=== PATIENT | male | born 1945 | race Caucasian/White ===

== ENCOUNTER 2021-01-17 05:45 | Outpatient (CLI) | payer MEDICARE, OTHER | END 2021-01-17 23:59 | disposition home or self-care (01) | LOC: LAB 05:45 | PROVIDERS: ATTEND Specialist | DX: Z01.812 Encounter for preprocedural laboratory examination (principal); Z20.822 Contact with and (suspected) exposure to COVID-19 | CPT/HCPCS: C9803; U0003 ==

== ENCOUNTER 2021-01-20 05:08 | Inpatient (IN) | payer MEDICARE, OTHER ==
[~2021-01-20] VITALS: Ht 172.7 cm; Wt 76.2 kg
[2021-01-20] VITALS (34 sets, daily range): BP systolic 60–132; BP diastolic 36–98
[~2021-01-20 05:08] MED LIST: ANESTHESIA TRAY IN PYXIS 1 EA TRAY MC ONE
[2021-01-20] MEDS ORDERED: POLYMYXIN B SULFATE 500,000 UNITS ONE (05:46)
[2021-01-20] MEDS ORDERED: BUPIVACAINE MPF W/EPI 0.25% 30 ML VIAL ONE (05:47)
[2021-01-20] MEDS ORDERED: BUPIVACAINE MPF 0.5% W/EPI INJ 30 ML VIAL ONE (05:47)
[2021-01-20] MEDS ORDERED: MIDAZOLAM HCL 2 MG/2ML VIAL ONE (06:01)
[2021-01-20] MEDS ORDERED: FENTANYL PF 250MCG/5ML AMPUL ONE (06:01)
[2021-01-20] MEDS ORDERED: SUCCINYLCHOLINE CHLORIDE 20 MG/ML VIAL ONE (06:02)
[2021-01-20] MEDS ORDERED: FAMOTIDINE/PF INJ 20 MG/2 ML VIAL IV ONE (06:02)
--- NOTE | 2021-01-20 06:48 | NUR ---
BROADCAST FIELD SUPERVISOR NOTES: PATIENT CAME IN FOR DAY SURGERY 0540, AMBULATORY, A/0X4 ABLE TO MAKE NEEDS KNOWN, PLACE IN BED COMFORTABLY AT ROOM 306-2, PREPARED FOR DAY SURGERY ASSESSMENT DONE, PATIENT SIGNED CONSENT FORM , DR CAME IN AND EXPLAIN PROCEDURE, INVENTORY DONE, MRSA DONE,V/S TAKEN AND RECORDED, PATIENT ON RA SATURATING AT 97% NO SOB OR ANY RESP DISTRESS OBSERVED, KEPT CLEAN AND DRY, COAT TAILOR AT 0620 TO SURGERY DEPARTMENT.
[2021-01-20] MEDS ORDERED: TRANEXAMIC ACID 3,000 MG in SODIUM CHLORIDE IRRIG SOLUTION 70 ML IR ONE (07:00)
[2021-01-20] MEDS ORDERED: BUPIVACAINE 0.25% 75 MG/30 ML VIAL ONE (07:04)
[2021-01-20] MEDS ORDERED: FENTANYL PF 100MCG/2ML AMPUL ONE (09:57)
[2021-01-20] MEDS ORDERED: ACETAMINOPHEN 325 MG TABLET PO PRN (10:00)
[2021-01-20] MEDS ORDERED: ZOLPIDEM TARTRATE 5 MG TABLET PO PRN (10:00)
[2021-01-20] MEDS ORDERED: IV D5/0.45 NACL 1,000 ML IV PRN (10:00)
[2021-01-20] MEDS ORDERED: HYDROCODONE/APAP 5/325MG TABLET PO PRN ×2 (10:00→12:00)
[2021-01-20] MEDS ORDERED: DOCUSATE SODIUM 250 MG CAPSULE PO PRN (10:00)
[2021-01-20] MEDS ORDERED: BISACODYL SUPP (10 MG) 10 MG/SUPP.RECT SUPP.RECT RC PRN (10:00)
[2021-01-20] MEDS ORDERED: ONDANSETRON HCL/PF 4 MG/2 ML VIAL IVP PRN (10:00)
[2021-01-20] MEDS ORDERED: SENNOSIDES 8.6 MG TABLET PO PRN (10:00)
[2021-01-20 10:51] LABS: ABG BASE EXCESS -2.4 mmol/L; ABG OXYGEN SATURATION 90.6 % (92.0-98.5); ABG PCO2 36.4 mmHg (35.0-45.0); ABG PH 7.396 (7.350-7.450); ABG PO2 60.4 mmHg (75.0-100.0); AaDO2 211.8 mmHg; COHb 0.3 % (0.5-1.5); MetHb 0.3 % (0.0-1.5); O2Hb 90.1 % (94.0-97.0); SITE, ABG Right Radial; VENT MODE, BG NASAL CANNULA
[2021-01-20] MEDS ORDERED: ACETAMINOPHEN 325 MG TABLET PO ONE (11:52)
[2021-01-20] MEDS ORDERED: MAG HYDROX/AL HYDROX/SIMETH 30 ML UDC PO PRN (12:00)
[2021-01-20] MEDS ORDERED: HYDROMORPHONE 1 MG/1 ML DISP.SYRIN IM/IV/SC PRN (12:00)
[2021-01-20] MEDS ORDERED: CLONIDINE HCL 0.1 MG TABLET PO PRN (12:00)
[2021-01-20] MEDS ORDERED: diphenhydrAMINE HCL 25 MG CAPSULE PO PRN (12:00)
--- NOTE | 2021-01-20 12:30 | NUR ---
rn notes PATIENT RECEIVED FROM RECOVERY ROOM AT THIS TIME RIGHT KNEE ORTHOPLASTY, RIGHT GROIN NERVE BLACK, SPINAL, AND GENERALIZED ANESTHESIA. PATIENT T-102.7 F RECTALLY, BP- 107/74, P-92, O2-91 NC -5L, R-12. PATIENT AWAKE A/O X3, WAS COMPLAINING OF PAIN 5/10 PER PAIN SCALE ON RIGHT KNEE. HAS ICE PACK ON. PATIENT HAS KNEE MOBILIZER, AND WARPED WITH ELASTIC WRAPPER. CAMPBELL DRAINING LIGHT YELLOW OUTPUT, AND HAD SMALL BLEEDING FROM INSERTION SITE. SEEN HOSPITALIST Dr ALEXANDRIA CAMPOS ORDER BLOOD CULTURE X2 SETS. ADMINISTER ANCEF X2 ORDERED , AND CALL MD FOR NEW NEEDS. ORDER TAKEN AND CARRIED OUT. CALL LIGHT WITHIN TO REACH. APPLIED COOLING MEASURE, AND ADMINISTERED TYLENOL 650 PO PRN. PATIENT REFUSED NAUSEA. CALL LIGHT WITHIN TO REACH. WILL FOLLOW UP. CALLED 3W FOR BELONGING BRING TO THE ICU.
[2021-01-20] MEDS ORDERED: ZOLP12.542 PO (13:35)
[2021-01-20] MEDS ORDERED: OXYC1TAB12 PO (13:35)
[2021-01-20] MEDS ORDERED: TAMS-12 PO (13:35)
[2021-01-20] MEDS ORDERED: HYDR25TA4 PO (13:35)
[2021-01-20] MEDS ORDERED: POTA8TAB3 PO (13:35)
[2021-01-20] MEDS: HYDROCODONE/APAP 10/325MG TABLET PO PRN (14:23)
--- NOTE | 2021-01-20 14:23 | NUR ---
rn notes administered narco10/325 mg po prn for right knee pain 09/09 per patient request . bp 108/74, p-88, r-24.
[2021-01-20] MEDS: ANCEF 1 GM/50 ML D5W IV SCH ×2 (15:39→22:29)
[2021-01-20] MEDS: DOCUSATE SODIUM 100 MG CAPSULE PO SCH (16:42)
--- NOTE | 2021-01-20 18:30 | NUR ---
RN NOTES T-99.9 RECTAL, TOLERATED DINNER 75 %, DUE MEDICATION ADMINISTERED, PATIENT STILL BLEEDING CAMPBELL INSERTION SIDE, CAMPBELL OUTPUT WAS 550ML, INFUSING D5W @125 ML/HR ON LEFT HAND INTACT. ASSIST TURN AND REPOSTION Q 2 HR. ELEVATED RIGHT LEG USING PILLOW, APPLIED ICE ON FLOR , PATIENT HAS RIGHT LEG BRACE IMMOBILIZER. PATIENT RESTING AT THIS TIME, REFUSED PAIN AT THIS TIME. ENDORSED ONCOMING NURSE FOLLOW PLAN OF CARE.
--- NOTE | 2021-01-20 19:00 | NUR ---
RN NOTE REPORT RECEIVED FROM BRYSON MCCURDY, PATIENT IN BED, AO X 4, IN NO S/SX OF ACUTE DISTRESS AT THIS TIME. ON 5L VIA NC, SATURATION AT 95%, SR ON THE MONITOR, HR IS 72. NOTED IV SITE AT L HAND 20G, PATENT AND FLUSHING WELL, NO S/S OF INFECTION OR INFILTRATION. CAMPBELL CATHETER CONNECTED TO URINE BAG, DRAINING TO A CLEAR YELLOW OUTPUT. POST OPERATIVE WOUND DRESSING DRY AND INTACT, PER MD ORDER FIRST DRESSING CHANGE TO BE DONE BY MD. SAFETY MEASURES IMPLEMENTED. PATIENT BED ALARM IS ON. HEAD OF BED ELEVATED. BED IS LOCKED, IN LOWEST POSITION AND SIDE RAILS UP. CALL LIGHT WITHIN REACH OF THE PATIENT. WILL CONTINUE TO MONITOR AND REASSESS FOR ANY CHANGES.
[2021-01-20] MEDS: FAMOTIDINE (20 MG) 20 MG TABLET PO SCH (20:10)
--- NOTE | 2021-01-20 21:40 | NUR ---
RN NOTE TELEPHONE CALL FROM ANESTHESIOLOGIST DR KYLEE HUDDLESTON RE: PULMONARY EDEMA, WANTS TO ORDER LASIX 20 MG IV, AND WANTS TO TALK TO PRIMARY. DR DELAROSA WAS NOTIFIED, DR HUDDLESTON'S CELLPHONE NO. [phone], SHE ACKNOWLEDGED.
[2021-01-20] MEDS: TAMSULOSIN 0.4 MG CAP.SR.24H PO SCH (22:26)
[2021-01-20 23:19] LABS: BASOPHILS % (AUTO) 0.1 % (0.0-2.0); HEMATOCRIT 38 % (39-51); HEMOGLOBIN 12.7 g/dL (13.5-17.5); LYMPHOCYTES # (AUTO) 0.2 K/uL (0.8-4.8); MEAN CORPUSCULAR HGB CONC 34 g/dl (31.0-36.0); MEAN CORPUSCULAR VOLUME 102 fL (80-96); MONOCYTES # (AUTO) 1.1 K/uL (0.1-1.30); MONOCYTES % (AUTO) 4.7 % (2.0-12.0); NEUTROPHILS # (AUTO) 22.5 K/uL (1.8-8.9); NEUTROPHILS % (AUTO) 94.2 % (43.0-81.0); PLATELET COUNT (AUTO) 189 K/uL (150-450); RED BLOOD CELL COUNT(AUTO) 3.73 MIL/uL (4.5-6.0); WHITE BLOOD COUNT (AUTO) 23.9 K/uL (4.3-11.0)
--- NOTE | 2021-01-20 23:40 | NUR ---
PT PLACED ON NOC CPAP. RN NOTIFIED.
[2021-01-20 23:58] LABS: CALCIUM, SERUM 7.4 mg/dL (8.5-10.1); CARBON DIOXIDE 26 mmol/L (21-32); CHLORIDE 104 mmol/L (98-107); GLUCOSE 135 mg/dL (74-106); POTASSIUM 3.5 mmol/L (3.5-5.1); SODIUM SERUM 137 mmol/L (136-145); UREA NITROGEN, BLOOD 20 mg/dL (7-18)
[2021-01-21] VITALS (22 sets, daily range): BP systolic 62–123; BP diastolic 32–77
[2021-01-21 03:15] LABS: BASOPHILS # (AUTO) 0.1 K/uL (0.0-0.2); BASOPHILS % (AUTO) 0.2 % (0.0-2.0); EOSINOPHILS % (AUTO) 0.1 % (0.0-6.0); HEMATOCRIT 37 % (39-51); HEMOGLOBIN 12.7 g/dL (13.5-17.5); LYMPHOCYTES # (AUTO) 0.4 K/uL (0.8-4.8); MEAN CORPUSCULAR HGB CONC 34 g/dl (31.0-36.0); MEAN CORPUSCULAR VOLUME 101 fL (80-96); NEUTROPHILS # (AUTO) 19.6 K/uL (1.8-8.9); NEUTROPHILS % (AUTO) 92.7 % (43.0-81.0); PLATELET COUNT (AUTO) 183 K/uL (150-450); RED BLOOD CELL COUNT(AUTO) 3.67 MIL/uL (4.5-6.0); WHITE BLOOD COUNT (AUTO) 21.1 K/uL (4.3-11.0)
[2021-01-21 03:42] LABS: BILIRUBIN,DIRECT 0.2 mg/dL (0.0-0.2); BILIRUBIN,TOTAL 0.6 mg/dL (0.2-1.0)
[2021-01-21 03:43] LABS: ALBUMIN 2.6 g/dL (3.4-5.0); BILIRUBIN,TOTAL 0.6 mg/dL (0.2-1.0); CALCIUM, SERUM 7.3 mg/dL (8.5-10.1); MAGNESIUM 1.8 mg/dL (1.8-2.4); PHOSPHORUS 4.1 mg/dL (2.5-4.9); POTASSIUM 3.8 mmol/L (3.5-5.1); TOTAL PROTEIN, SERUM 5.5 g/dL (6.4-8.2)
--- NOTE | 2021-01-21 05:08 | NUR ---
PT TAKEN OFF NOC CPAP AND PLACED ON 4L NC. RN NOTIFIED.
[2021-01-21] MEDS: DOCUSATE SODIUM 100 MG CAPSULE PO SCH ×3 (09:00→16:38)
[2021-01-21] MEDS: ASPIRIN 325 MG TABLET PO SCH ×2 (09:00→09:19)
[2021-01-21] MEDS: FAMOTIDINE (20 MG) 20 MG TABLET PO SCH ×2 (09:19→20:43)
--- NOTE | 2021-01-21 12:55 | NUR ---
PT EVALUATION COMPLETE PER PT PT AMBULATED 20 FT. PT REPORTS MILD PAIN AND DECLINED PAIN MEDICATION
[2021-01-21] MEDS: HYDROCODONE/APAP 10/325MG TABLET PO PRN ×2 (12:57→20:06)
[2021-01-21] MEDS ORDERED: PIPERACILLIN /TAZOBACTAM 3.375 G in IV D5W 50 ML IV SCH (13:00)
--- NOTE | 2021-01-21 15:13 | NUR ---
Patient arrived via bed around 1513 from ICU. Patient AO X 4, able to make needs known, can follow simple commands, no apparent distress noted, breathing even and unlabored. Patient admitting diagnosis right TKA and hypoxic respiratory failure. Patient's vital signs within normal limits, denies any pain or discomfort. Patient's right lower extremity wrapped in razia bandage, no s/s of circulation impairment noted at this time, skin warm to touch, no pallor or cyanosis noted, pulse present during shift, no swelling noted at this time. Skin intact, warm to touch, no pallor or cyanosis noted. Patient oriented with use of call lights, use of bed control, use of telephone and tv control, also introduces CORE CHECKER and RN assigned for today, verbalized understanding and gratitude. All belongings written in the inventory list. All needs attended, kept clean and dry, call light left within reach, safety precautions in place, brakes locked, side rails up X 2, will continue to monitor for any changes.
--- NOTE | 2021-01-21 15:14 | NUR ---
PT TRANSPORTED TO [facility][id number]. RECEIVING NURSE
[2021-01-21] MEDS: PIPERACILLIN /TAZOBACTAM 3.375 G in IV D5W 100 ML IV SCH ×2 (15:25→20:36)
--- NOTE | 2021-01-21 16:20 | NUR ---
SS Consult: SS consult requested for safe DC planning. The pt. is a 76-year-old male in [facility] seeking medical attention for right knee replacement and pneumonia per pt. Per EMR, pt. was stable during knee replacement surgery and became febrile post operation. LATRELL met with pt. bedside. Pt. is A&O X 4 appears well-groomed and makes good eye contact. Pt. presents euthymic mood and affect. SW explored pt.s living situation and familial/ support system. Pt. stated he lives with a roommate at home [[facility] [facility] [address]; [phone]] However, his roommate is away and will return January. Per pt. his niece, Brianda Greenwood [phone] who lives in [place] is of great support to him. Pt. stated his children live in [place] and [place]. Pt. stated he was told to be off of my knew for about 4 weeks. SW provided DME, caregiving, transportation, meals on wheels & grocery delivery resources to pt. and he thanked SW. Plan; Pt. stated he discussed ARU placement when ready for DC. Per CM note pt.s nieceBrianda is available to provide transportation. Pt. stated he has [facility] [phone] services and they will be helping him with obtaining appropriate DME prior to going home. Noted. RESOURCES PROVIDED INCLUDE: ABUSE PREVENTION: ELDER ABUSE HOTLINE (23/10) ADULT PROTECTIVE SERVICES HOTLINE LONG-TERM CARE [facility] Region AREA ON AGING (HOTLINE) ADULT DAY HEALTH CARE CARE CENTERS: Private pay or Medi-aldo funded adult day care [place] Adult Day Health Care [place] [facility] , [facility] Services , [facility] , [facility] Adult [facility] Health Care , [facility] Adult [facility] Health Care , [facility] , [place] [facility] , [facility] , [place] ALZHEIMERS DISEASE/DEMENTIA: Alzheimers Association Helpline [facility] Chapter www.alz.org/[facility] Department of Aging www.lacity.org Family Caregiver [place] www.caregiver.org [place] Caregiver Resources Center/Family Support www.[facility].org CANCER RESOURCES: Citizen Of [place] Cancer Society www.cancer.org Cancer Support Community www.CancerSupportVvsb.org: CancerCare www.cancercare.org [facility] Cancer Support Baggs www.[facility].org FOR[facility]LY [facility] HEALTH ASSOCIATIONS: AARP www.aarp.org ALS Association (ask for Lissa) www.als.org Citizen Of [place] Diabetes Association www.diabetes.org Citizen Of [place] Heart Association www.heart.org Citizen Of [place] Lung Association www.lungusa.org Citizen Of [place] Parkinson Disease Association www.apdaparkinson.org Citizen Of [place] Falkner , www.redcross.org Arthritis Foundation www.arthritis.org Crohns & Colitis Foundation of Citizen Of [place] www.ccfa.org/chapters/catherine National Multiple Sclerosis Society www.nationalmssociety.org Myasthenia Gravis Foundation www.myasthenia-ca.org National Stroke Association www.stroke.org CONSERVATORSHIP & GUARDIANSHIP: AARP Emily Walker Legal Services Center for Health Care Rights Eldercare Information and Referral Machine Hoop Maker Helper Foundation [facility]: [facility] Bar Referral Service [facility] Legal Services Office of the Public Guardian [place] EYESIGHT DISORDER RESOURCES: Citizen Of [place] Macular Degeneration Foundation [facility] www.thomas b. finan center.org GRIEF AND BEREAVEMENT RESOURCES: The Gathering Place , [facility] THE [place] Connection , [facility] Bereavement Center , [place] HEARING DISORDER RESOURCES: [place] Telephone Access Program Deaf and Disabled Telecommunications Program www.ddtp.[facility].ca.gov HearRx Hearing Centers (Tarrs) Better Hearing Systems , [place] GLAD ([facility] Agency on Deafness) V/ TTY; Soda Drier Feeder , [facility] Hearing [facility] -low income hearing aid assistance www.[facility] g.h. bing, md, cancer centerringfoundation.org [place] Hearing Care , Jem HELP AT HOME CAREGIVER SUPPORT: In Home Support Services (Must have Medi-Aldo to be eligible) *Ask for a list of agencies that provide services to assist with care in the home. Local Senior Centers also have listings of care providers. HOME SAFETY MODIFICATIONS AND EQUIPMENT: Senior centers have additional referrals. [place] Housing and Community Investment Dept. Handyworker Program (low income) or Visit http://hcidla.[facility].org/ypf-ypyyfa-sw for more information National Seating and Mobility and/or ; Forever Active www.foreveractivemed.TrustedPlaces Stay Home Safe www.Stayhomesafe.TrustedPlaces LIFE ALERT RESPONSE SYSTEM: [place]o Lifeline Services 907-815-7240 www. [employer] Life Alert 182-126-9592 www.Best Doctors Life Station 443-887-8063 www.The Auto Vaultation.TrustedPlaces Safe Return 803-041-0582 www.Ischemia Care.or/safereturn Cell Phones for Seniors www.Magnetecs MEALS AND FOOD PROGRAMS: [place] Meals on Wheels [phone] [place] Meals on Wheels [phone] [facility] [phone] [place] to the Homebound [phone] [place] to the Homebound [phone] [facility] to the Homebound [phone] [facility] to the Homebound [phone] [facility] Patrice Pedroza [phone] [facility] [phone] ONE Generation [phone] [facility] [phone] [facility] [phone] Meals on Wheels [phone] For all ages: $6.85/ meal w side. Delivered M-F from 10 am-1pm. Application and payment is done over the phone. Frozen meals available for weekends. Emergency Food Coalbanner [phone] [facility] Reject Opener [phone] [facility] [phone] [facility]- Brown bag lunches [phone] [facility] [phone] MEAL/GROCERY DELIVERY PROGRAMS: Toby [facility] Gourmet Meals [phone]- [facility] [phone]- [facility] Magic Kitchen [phone] Moms Meals [phone] (ask Majano for Discount Select grocery stores may provide delivery. MEDICAL INSURANCE SUPPORT SERVICES: Center for Health Care Rights [phone] Health Insurance Counseling/Advocacy Programs (HICAP)-Must have Medicare. Offers counseling for Medi-Aldo eligibility [phone] Department of Public Reject Opener [phone] www.[facility].ca.gov Medicare 766-068-4754 www.socialsecurity.org Social Security [phone] SENIOR ACTIVITY PROGRAMS: *Contact a local senior center, adult school, recreation facility or community [facility] for education, fitness, recreation, and social programs. Aquatic Therapy and Adapted Exercise programs through [facility] [phone] Encore at [facility] [phone] www.[facility]/encore [facility]- Senior Friends [phone] [place] Senior Programs [phone] www.oasisnet.org Suddenly 65 www.Neocoretech.TrustedPlaces SENIOR CENTERS: [facility] [phone] [facility] [phone] [facility] [phone] [facility] [phone] [facility] [phone] [facility] [phone] [facility] [phone] [facility] [phone] [facility] [phone] [facility] [phone] [facility] [phone] [facility] [phone] [facility] [phone] TRANSPORTATION: Local [facility] may have applications for transportation programs and additional resources. ACCESS Services [phone] Transportation for seniors and disabled persons 7 days a week requiring 254 hr. advance reservation. Must apply and register for program varun eligible. CITY RIDE 810-932-0276 or [phone] Transportation for seniors and persons with ADA card/metro disabled card in the [facility]. M-F only. Must register for services. ONE GENERATION [phone] Serves 65 years + in conjunction with city ride program. Must be registered with both programs. A to B Transport [phone] Provides wheelchair/gurney van service. Adult Medical Transport [phone] Accepts [facility] with prior authorization. Care Van [phone] Provides wheelchair Transport. [facility] Wide Transportation [phone] Provides gurney service Gentle Care [phone] Gurney Transport. [facility] Town Transportation [phone] wheelchair & gurney transport D Transportation [phone] wheelchair & gurney transport [place] Non-Emergency Transport [phone] wheelchair & gurney transport [facility] Center [phone] Short Term Transportation primarily for adults with disabilities on social security income. Nominal fee may apply and a reservation is required. [facility] Cab [phone] or [phone] [facility] [phone] [place] [address] Referral Services [phone] For additional programs & services VETERANS RESOURCES: Submissions for Aid and Attendance should be done directly to Federal VA office locatd at : [address] [facility] [phone] National Caregiver Support Line [phone] Aldo Mg Veterans Services Field Office [phone] [place] Department of [place] Affairs [phone] Pension Information [phone]
--- NOTE | 2021-01-21 18:28 | NUR ---
RN CLOSING NOTES Patient lying in bed, AO X 4, respirations even and unlabored, no SOB, remained afebrile, no apparent distress noted. All medications given per MD order, tolerating well. Patients right lower extremity is wrapped with razia bandage, no s/s of circulation impairment noted at this time, skin warm to touch, no pallor or cyanosis noted, pulse present during shift, no swelling noted at this time. Patient also using CPM machine, tolerating well, denies any pain or discomfort at this time. [place] catheter draining clear yellowish urine free from any sediments, no hematuria, and no unusual odor noted in urine, denies any bladder pain or discomfort, bladder non distended during shift. All needs attended, kept clean and dry, safety precautions in place, brakes locked, side rails up X 2, call light left within reach, will endorse to next shift for continuity of care.
--- NOTE | 2021-01-21 20:37 | NUR ---
RECEIVED IN BED ALERT AND ORIENTATED X4 TALKATIVE ABOUT HIS MANY SURGERIES AND USING HIS PHONE TO SHOW ME THE SURGERIES RIGHT LEG IN THE CPM MACHINE AND IT IS TURNED ON RIGHT FOOT PPP AND THE FOOT IS WARM MEDICATED WITH NORCO TAB 1 FOR THE RIGHT KNEE PAIN ADRIAN EMPTIED 1200 EYE GLASSES ON
[2021-01-21] MEDS: TAMSULOSIN 0.4 MG CAP.SR.24H PO SCH (21:34)
--- NOTE | 2021-01-22 04:22 | NUR ---
ENDING NOTES:SLEPT THRU THE NIGHT CPAP WORN THRU THE NIGHT CPM WAS WORN UP UNTIL 2200 RIGHT FOOT WARM AND PPP SPEAKS OF GOING TO [facility] MEDICATED X1 WITH NORCO AND THIS WAS EFFECTIVE
[2021-01-22] MEDS: PIPERACILLIN /TAZOBACTAM 3.375 G in IV D5W 100 ML IV SCH ×3 (04:38→20:42)
[2021-01-22 06:36] LABS: BASOPHILS % (AUTO) 0.3 % (0.0-2.0); EOSINOPHILS % (AUTO) 1.5 % (0.0-6.0); HEMATOCRIT 39 % (39-51); HEMOGLOBIN 13.6 g/dL (13.5-17.5); LYMPHOCYTES # (AUTO) 0.8 K/uL (0.8-4.8); LYMPHOCYTES % (AUTO) 4.4 % (20.0-44.0); MEAN CORPUSCULAR HGB CONC 35 g/dl (31.0-36.0); MEAN CORPUSCULAR VOLUME 100 fL (80-96); MONOCYTES # (AUTO) 0.9 K/uL (0.1-1.30); MONOCYTES % (AUTO) 5.3 % (2.0-12.0); NEUTROPHILS # (AUTO) 15.7 K/uL (1.8-8.9); NEUTROPHILS % (AUTO) 88.5 % (43.0-81.0); PLATELET COUNT (AUTO) 168 K/uL (150-450); RED BLOOD CELL COUNT(AUTO) 3.86 MIL/uL (4.5-6.0); WHITE BLOOD COUNT (AUTO) 17.7 K/uL (4.3-11.0)
[2021-01-22 07:02] LABS: CALCIUM, SERUM 7.9 mg/dL (8.5-10.1); CREATININE 0.9 mg/dL (0.6-1.3); MAGNESIUM 2.1 mg/dL (1.8-2.4); POTASSIUM 3.3 mmol/L (3.5-5.1)
[2021-01-22] MEDS: HYDROCODONE/APAP 10/325MG TABLET PO PRN ×2 (07:19→20:05)
--- NOTE | 2021-01-22 07:30 | NUR ---
MS RN OPENING NOTES RECEIVED PATIENT IN BED ALERT AND ORIENTATED X4. ON ROOM AIR TOLERATING WELL. NO SOB NOTED. NOT IN DISTRESS. WITH COMPLAINTS OF PAIN AT THE RIGHT LEG. PAIN MEDS GIVEN BY NIGHT NURSE ETHEL. COMFORT MEASURES PROVIDED. WITH IV ACCESS AT LEFT HAND G20, SALINE LOCKED, INTACT AND PATENT. SAFETY MEASURES IN PLACE. CALL LIGHT WITHIN REACH. BED ON LOWEST AND LOCKED POSITION. SIDE RAILS UP X2. WILL CONTINUE TO MONITOR.
[2021-01-22 08:00] VITALS: BP 130/87
[2021-01-22] MEDS: ASPIRIN 325 MG TABLET PO SCH (08:23)
[2021-01-22] MEDS: DOCUSATE SODIUM 100 MG CAPSULE PO SCH ×2 (08:23→16:38)
[2021-01-22] MEDS: FAMOTIDINE (20 MG) 20 MG TABLET PO SCH ×2 (08:24→20:44)
[2021-01-22] MEDS ORDERED: POTASSIUM CHLORIDE 20 MEQ TAB.PRT.SR PO SCH (09:00)
[2021-01-22] MEDS ORDERED: K PHOS NEUTRAL 250 MG TABLET PO ONE (09:00)
[2021-01-22 16:00] VITALS: BP 144/89
--- NOTE | 2021-01-22 18:27 | NUR ---
MS RN CLOSING NOTES PT RESTING ON BED AND A/O X4. ON ROOM AIR TOLERATING WELL. NO SOB NOTED. NOT IN DISTRESS. WITH NO COMPLAINT OF PAIN AT THIS TIME. WITH IV ACCESS AT LEFT HAND G20, SALINE LOCKED, PATENT AND INTACT. ON CPM AT 0-45DEGREES WITH GOOD TOLERANCE. WITH CAMPBELL CATHETER IN PLACE. SAFETY MEASURES IN PLACE. CALL LIGHT WITHIN REACH. BED ON LOWEST AND LOCKED POSITION, SIDE RAILS UP X2. WILL ENDORSE TO NEXT SHIFT FOR NATASHA.
--- NOTE | 2021-01-22 19:00 | NUR ---
RECEIVED PATIENT IN HIS BED RIGHT LEG DRESSING CLEAN DRY INTACT TOES WARM AND MOVEMENT PRESENT VERBALIZES HIS NEEDREQUISTING AMBIEN AND A CALL WAS MADE TO THE MD AND ORDERES RECEIVED
[2021-01-22 20:00] VITALS: BP 145/85
[2021-01-22] MEDS: TAMSULOSIN 0.4 MG CAP.SR.24H PO SCH (21:27)
[2021-01-22] MEDS: ZOLPIDEM TARTRATE 10 MG TABLET PO PRN (23:36)
[2021-01-23] MEDS: PIPERACILLIN /TAZOBACTAM 3.375 G in IV D5W 100 ML IV SCH ×3 (04:33→20:59)
--- NOTE | 2021-01-23 05:00 | NUR ---
CLOSING NOTES REQUISTED A SLEEPING PILL AND WALE ORDERED AMBIEN. MEDICATED X1 FOR PAIN AND EFFECTIVE. SLEEPER EFFECTIVE NOTED SMALL AMOUNT BLEEDING AROUND THE CAMPBELL CATHETER URINE CLEAR ;
--- NOTE | 2021-01-23 06:14 | NUR ---
PATIENT FOUND WITH CAMPBELL CATH REMOVED PATIENT IN HIS SLEEP ACCIDENTLY REMOVED THE CATHERER. TEXT ZOEY TAYLOR AND WILL WAIT FOR HER TO RESPOND FOR NOW ENSTUECTED HIM TO US THE URIENAL PATIENT IF ON FLOMAX
[2021-01-23] MEDS: HYDROCODONE/APAP 10/325MG TABLET PO PRN ×3 (06:21→21:28)
--- NOTE | 2021-01-23 06:29 | NUR ---
SPOKE TO Shahram TOLD HER ABOUT THE CATHETER ACCIDENTLY BEING REOVED . WILL LEAVE THE CATHETER OUT. URINAL GIVEN TO THE PATIENTS AND HE VOIDED 200 CC CLEAR LAURA URINE
--- NOTE | 2021-01-23 07:25 | NUR ---
RN OPENING NOTE RECEIVED PATIENT IN BED. A/O X3-4. ON ROOM AIR, NO SOB NOTED. IN NO APPARENT DISTRESS. DENIES ANY PAIN OR DISCOMFORT AT THIS TIME. IV ACCESS ON L HAND #20 G, INTACT AND PATENT. SAFETY MEASURES MAINTAINED. BED IN LOWEST POSITION, BRAKES LOCKED. SIDE RAILS UP X2. CALL LIGHT WITHIN REACH. WILL CONTINUE PLAN OF CARE.
[2021-01-23 07:40] LABS: BASOPHILS # (AUTO) 0.1 K/uL (0.0-0.2); BASOPHILS % (AUTO) 0.4 % (0.0-2.0); EOSINOPHILS % (AUTO) 2.8 % (0.0-6.0); HEMATOCRIT 38 % (39-51); HEMOGLOBIN 13.2 g/dL (13.5-17.5); LYMPHOCYTES # (AUTO) 1.2 K/uL (0.8-4.8); MEAN CORPUSCULAR HGB CONC 35 g/dl (31.0-36.0); MEAN CORPUSCULAR VOLUME 99 fL (80-96); MONOCYTES # (AUTO) 0.8 K/uL (0.1-1.30); NEUTROPHILS # (AUTO) 9.4 K/uL (1.8-8.9); NEUTROPHILS % (AUTO) 79.8 % (43.0-81.0); PLATELET COUNT (AUTO) 187 K/uL (150-450); RED BLOOD CELL COUNT(AUTO) 3.86 MIL/uL (4.5-6.0); WHITE BLOOD COUNT (AUTO) 11.8 K/uL (4.3-11.0)
[2021-01-23 08:00] VITALS: BP 130/88
[2021-01-23 08:18] LABS: ALBUMIN 2.6 g/dL (3.4-5.0); BILIRUBIN,TOTAL 0.8 mg/dL (0.2-1.0); CALCIUM, SERUM 8.2 mg/dL (8.5-10.1); CREATININE 0.9 mg/dL (0.6-1.3); MAGNESIUM 1.9 mg/dL (1.8-2.4); PHOSPHORUS 2.6 mg/dL (2.5-4.9); TOTAL PROTEIN, SERUM 6.3 g/dL (6.4-8.2)
[2021-01-23] MEDS: FAMOTIDINE (20 MG) 20 MG TABLET PO SCH ×2 (08:37→21:18)
[2021-01-23] MEDS: DOCUSATE SODIUM 100 MG CAPSULE PO SCH ×2 (08:37→16:40)
[2021-01-23] MEDS: ASPIRIN 325 MG TABLET PO SCH (08:39)
--- NOTE | 2021-01-23 18:10 | NUR ---
RN CLOSING NOTE PATIENT RESTING IN BED. A/O X4. ON ROOM AIR, NO SOB NOTED. NO S/S OF RESPIRATORY DISTRESS. IV ACCESS ON L HAND #20 G, INTACT AND PATENT. DUE MEDS GIVEN ORDERED. ABLE TO MAKE NEEDS KNOWN. SAFETY MEASURES MAINTAINED. BED IN LOWEST POSITION, BRAKES LOCKED. SIDE RAILS UP X2. KEPT CALL LIGHT WITHIN REACH. WILL ENDORSE CONTINUITY OF CARE TO ONCOMING SHIFT.
[2021-01-23] MEDS: TAMSULOSIN 0.4 MG CAP.SR.24H PO SCH (21:16)
[2021-01-23] MEDS: ZOLPIDEM TARTRATE 10 MG TABLET PO PRN (23:09)
--- NOTE | 2021-01-23 23:32 | NUR ---
RT NOTE PT PLACED ON CPAP AT THIS TIME. PT TOLERATING WELL. NO RESPIRATORY DISTRESS NOTED. SPO2 > 92%. WILL CONTINUE TO MONITOR.
--- NOTE | 2021-01-24 03:31 | NUR ---
RT NOTE PT REMOVED BIPAP MASK AT THIS TIME. PT DOES NOT WANT TO USE IT. KAZ HUTCHINS NOTIFIED AND IS AWARE. NO RESPIRATORY DISTRESS NOTED. SPO2 @ 95%.
--- NOTE | 2021-01-24 04:41 | NUR ---
MS NURSING NOTES Patient has been A&Ox4, sleeping well but easy to wake. Tolerating IV ABX well. Was able to sleep with CPAP AT night but refused to wear for the remainder of the night at 0330. Able to get up and walk with knee brace and nurse assist prior to bedtime. Requested PRN [place] x1 with relief. No signs of distress. Patient had small BM after walking.
[2021-01-24] MEDS: PIPERACILLIN /TAZOBACTAM 3.375 G in IV D5W 100 ML IV SCH ×2 (05:51→12:31)
--- NOTE | 2021-01-24 07:43 | NUR ---
MS RN OPENING NOTES RECEIVED PATIENT AWAKE IN BED, ALERT AND ORIENTED X4. NO S/S OF DISTRESS NOTED. NO SOB. BREATHING IS EVEN AND UNLABORED. IV ACCESS LHAND#20 PATENT AND INTACT. SAFETY MEASURES IN PLACE WITH BED LOCKED IN LOW POSITION AND SIDE RAILS UP X 2. WILL CONTINUE TO MONITOR PATIENT THROUGHOUT SHIFT.
[2021-01-24 08:00] VITALS: BP 151/74
[2021-01-24] MEDS: ASPIRIN 325 MG TABLET PO SCH (09:08)
[2021-01-24] MEDS: FAMOTIDINE (20 MG) 20 MG TABLET PO SCH (09:08)
[2021-01-24] MEDS: DOCUSATE SODIUM 100 MG CAPSULE PO SCH ×2 (09:08→16:12)
[2021-01-24] MEDS: HYDROCODONE/APAP 10/325MG TABLET PO PRN (09:15)
[2021-01-24] MEDS ORDERED: SENNOSIDES 8.6 MG TABLET PO ONE (10:08)
[2021-01-24] MEDS: SENNOSIDES 8.6 MG TABLET PO SCH ×3 (10:30→16:12)
[2021-01-24 16:00] VITALS: BP 139/92
--- NOTE | 2021-01-24 18:02 | NUR ---
MS MCCURDY NOTES CALLED [facility], GAVE REPORT TO KAZ ROSS.
--- NOTE | 2021-01-24 18:46 | NUR ---
MS BUSINESS RULES ANALYST NOTES RECEIVED DISCHARGED WITH STABLE VITAL SIGNS. ALERT AND ORIENTED X 4. SO S/SX OF DISTRESS NOTED. NO SOB. BREATHING IS EVEN AND UNLABORED. DISCHARGE INSTRUCTIONS REVIEWED WITH PATIENT AND [place] AT BESIDE; VERBALIZED UNDERSTANDING, ALL QUESTIONS ANSWERED. ID BAND REMOVED. BELONGINGS RETURNED AND FORM SIGNED BY PATIENT. PATIENT WAS PICKED UP BY AMBULANCE. REPORT GIVEN TO KAZ ROSS AT [facility].
== END 2021-01-24 18:55 | DRG 469 ==
LOC: DS 05:08 → MED 05:09 → ICU 12:45 → MED 01-21 13:25
PROC: 0SRC0J9 Replacement of Right Knee Joint with Synthetic Substitute, Cemented, Open Approach (ICD-10-PCS; principal; 2021-01-20)
DX: M17.11 Unilateral primary osteoarthritis, right knee (principal); J18.9 Pneumonia, unspecified organism; J96.01 Acute respiratory failure with hypoxia; I10 Essential (primary) hypertension; N40.0 Benign prostatic hyperplasia without lower urinary tract symptoms; G47.33 Obstructive sleep apnea (adult) (pediatric); Z96.653 Presence of artificial knee joint, bilateral; M21.061 Valgus deformity, not elsewhere classified, right knee; Z20.822 Contact with and (suspected) exposure to COVID-19
CPT/HCPCS: 36415; 36600; 71045-TC; 80048-TC; 80053-TC; 82247-TC; 82248-TC; 82803-TC; 83605-TC; 83735-TC; 84100-TC; 85025-TC; 87040-TC; 87081-TC; 88305-TC; 88311-TC; 93307-TC; 93970-TC; 94760-TC; 97110-TC; 97112-TC; 97116-TC; 97530-TC; 97760-TC; A4217; C1713; C1776; C9803; G0378; J0330; J0690; J2250; J2405; J2543; J2704; J2765; J3010; J3490; J7030; J7040; J7050; J7060; L1830; U0003